=== PATIENT | female | born 2005 | race African-American/Black ===

== ENCOUNTER 2024-05-15 17:25 | Emergency (ER) | payer OTHER, SELFPAY ==
[2024-05-15 17:33] VITALS: BP 149/79; PULSE 132; RESP 22; TEMP 37; O2SAT 99; BMI 30.9
--- NOTE | 2024-05-15 17:36 | ED_ITS ---
HPI - General Adult General Chief complaint: Anxiety Stated complaint: anxiety since 2am Time Seen by Provider: 05/15/24 17:53 Source: patient Mode of arrival: ambulatory Limitations: no limitations History of Present Illness ED Provider: Dr. Jakub Mc HPI narrative: 18-year-old female with a history of anxiety and panic attack who presents emergency department for severe anxiety. The patient states that she stayed out late last night and got home around 200 hours. She states she did drink 1 shot shot of Tequila and did smoke marijuana. She states that since 02:00 hours this morning she has been feeling very anxious having a panic attack. She states she feels anxious, she is having chest tightness nausea, sweats, shortness of breath and vomiting. She did not take any medications prior to coming to the emergency department. Related Data Previous Rx's ?Medication ?Instructions ?Recorded diphenhydramine HCl 25 mg capsule 50 mg (2 x 25 mg) PO Q6H PRN 05/15/24 headache, nausea, vomiting #20 caps metoclopramide HCl 10 mg tablet 10 mg PO Q6H PRN nausea and 05/15/24 (Reglan) vomiting #14 tabs Allergies Allergy/AdvReac Type Severity Reaction Status Date / Time No Known Allergies Allergy Verified 05/15/24 17:36 Review of Systems 2 Review of Systems: Yes all other systems are reviewed and are negative [facility] Past Medical History [facility] Narrative: Social history: She denies tobacco use. She did drink Tequila and smoke marijuana this morning when she would state out late with her friends. Social History Social History Advance Directives: No Advance Directives Information Provided: Yes Physical Exam ED Vital Signs: Vital Signs - 24 hr 05/15/24 17:33 05/15/24 18:00 05/15/24 18:46 Temperature 98.6 F Pulse Rate 132 H 117 H 84 Respiratory Rate 22 H 24 H Blood Pressure 149/79 H 125/66 112/75 Pulse Oximetry 99 99 Oxygen Delivery Method Room Air Room Air 05/15/24 19:44 Temperature 98.8 F Pulse Rate 97 Respiratory Rate 20 Blood Pressure 93/60 Pulse Oximetry 95 Oxygen Delivery Method Room Air BMI result Body Mass Index 30.9 Vital signs revealed elevated heart rate, elevated respiratory rate and elevated blood pressure-these are consistent with her acute anxiety attack Exam: General: Awake, alert patient appears to be very anxious, she is leaning forward and vomiting, diaphoretic Head: Normocephalic, atraumatic EENT: PERRL, Lids normal, sclera normal, conjunctiva normal, nose normal , ears normal, throat without erythema or exudates Neck: Supple, no adenopathy Lung: Tachypnea breath sounds are symmetric bilaterally, no wheezing, rales or rhonchi Chest: symmetric movement, nontender Heart: Tachycardia with a regular rhythm, normal S1-S2, no murmurs rubs or go Abdomen: soft, non-tender, nondistended, normal bowel sounds Back: no vertebral tenderness, no CVAT Extremities: no deformities, moves all extremities symmetrically Neuro: Awake, alert, oriented, normal speech, cranial nerves intact, moves all extremities symmetrically Psych: Patient appears to be very anxious Course Course Course Narrative: This is an RME done by RAKESH Samuels: Additional HPI, ROS, PE not included below will be deferred to primary provider. This is a 18-year-old female presenting with anxiety, chest pain, nausea, vomiting, palpitations ongoing since 0200 endorses significant anxiety and overall feeling unwell. Reports she smoked [place] Medications Administered Discontinued Medications Generic Name Dose Route Start Last Admin Trade Name Freq PRN Reason Stop Dose Admin Diphenhydramine HCl 50 mg 05/15/24 18:39 05/15/24 18:45 Diphenhydramine Hcl 25 Mg Capsule PO 05/15/24 18:40 50 mg ONCE ONE Administration Lorazepam 2 mg 05/15/24 18:05 05/15/24 18:08 Lorazepam 2 Mg/Ml Vial IM 05/15/24 18:06 2 mg STAT STA Administration Metoclopramide HCl 10 mg 05/15/24 18:39 05/15/24 18:45 Metoclopramide Hcl 10 Mg Tablet PO 05/15/24 18:40 10 mg ONCE STA Administration Medical Decision Making Medical Decision Making MDM Narrative: 18-year-old female with a history of anxiety who presents emergency department for evaluation of anxiety attack. The patient did stay up late this morning and did drink Tequila and smoke marijuana.. Patient states she has been having anxiety attacks and 02:00 hours. Patient's vital signs did reveal tachypnea, tachycardia, elevated blood pressure. She appears to be very anxious, she was actively vomiting, she was diaphoretic exam is otherwise unremarkable. Differential diagnosis: ?Includes but is not limited to anxiety attack, adverse reaction to alcohol, adverse reaction to THC, electrolyte abnormalities, anemia Following evaluation was ordered: CBC, CMP, drug screen urine, ethanol level, magnesium, troponin, urinalysis, urine test Patient was initially treated with the following: Lorazepam 2 mg IM, Benadryl 50 mg orally, Reglan 10 mg orally Course: 18:53 My independent interpretation patient's laboratory evaluation is as follows: Urinalysis was positive for protein otherwise negative. Microscopic revealed 0- 2 RBCs, 0-5 WBCs, 11-20 squamous cells bacteria. Urine tox screen was positive for marijuana Lab Data 05/15/24 19:21 05/15/24 19:21 Labs: Lab Results 05/15/24 05/15/24 Range/Units 17:43 19:21 WBC 14.4 H (4.8-10.8) X10*3/uL RBC 5.08 (4.20-5.50) X10*6/uL Hgb 14.9 (12.0-16.0) g/dl Hct 42.2 (37.0-47.0) % MCV 83.1 (80.0-98.0) fL MCH 29.3 (27.0-33.0) pg MCHC 35.3 H (31.0-35.0) g/dl RDW 13.4 (11.0-16.0) % Plt Count 457 H (160-400) X10*3/uL MPV 10.3 (9.4-12.3) fL Immature Gran % (Auto) 0.3 (0.0-0.4) % Neut % (Auto) 82.5 H (45-73) % Lymph % (Auto) 10.4 L (20-40) % [place] % (Auto) 6.6 (2-11) % Eos % (Auto) 0.1 (0-4) % Baso % (Auto) 0.1 (0-2) % Lymph # (Auto) 1.5 (1.2-4.9) X10*3/uL [place] # (Auto) 1.0 (0.1-1.2) X10*3/uL Eos # (Auto) 0.0 (0.0-0.4) X10*3/uL Baso # (Auto) 0.0 (0.0-0.2) X10*3/uL Abs Immat Gran (auto) 0.05 H (0.00-0.03) X10*3/uL Absolute Neuts (auto) 11.9 H (2.0-8.3) x10*3/uL Absolute Nucleated RBC 0.000 (0.0-0.012) X10*3/uL Nucleated RBC % (auto) 0.0 (0.0-0.2) /100WBC Sodium 140 (135-145) mmol/L Potassium 3.8 (3.3-5.1) mmol/L Chloride 105 (96-108) mmol/L Carbon Dioxide 23 (22-29) mmol/L Anion Gap 16 (12-20) BUN 9 (9-16) mg/dL Creatinine 0.69 (0.5-1.4) mg/dL Estim Creat Clear Calc 110.1 Estimated GFR > 60 Random Glucose 106 (60-115) mg/dL Calcium 9.7 (8.4-10.2) mg/dL Magnesium 2.0 (1.6-2.6) mg/dL Total Bilirubin 0.6 (0.0-1.0) mg/dL AST 17 (5-31) U/L ALT 12 (0-31) U/L Alkaline Phosphatase 67 (39-117) U/L Troponin I High Sens < 2.7 (<3.5-17.0) ng/L Total Protein 8.9 H (6.5-8.0) g/dL Albumin 4.4 (3.5-5.0) g/dL Urine Color Yellow Urine Appearance Cloudy Urine pH 6.0 (5.0-9.0) Ur Specific [place] 1.025 (1.005-1.025) Urine Protein 100 (2+) H (Neg-Trace) mg/dL Urine Glucose (UA) Negative (Negative) mg/dL Urine Ketones 15 (Negative) mg/dL Urine Blood Negative (Negative) Urine Nitrite Negative (Negative) Ur Leukocyte Esterase Negative (Negative) Urine RBC 0-2 (0-2) /HPF Urine WBC 0-5 (0-5) /HPF Ur Squamous Epith Cells 11-20 (0-2) /HPF Urine Bacteria None Seen (None Seen) Hyaline Casts 0-2 (0-2) /LPF Urine Test NEGATIVE (NEGATIVE) Urine Opiates Screen Not Detected (Not Detect) Ur Buprenorphine Scrn Not Detected (Not Detect) ng/mL Ur Oxycodone Screen Not Detected (Not Detect) ng/mL Urine Methadone Screen Not Detected (Not Detect) ng/mL Urine Fentanyl Screen Not Detected (Not Detect) Ur Barbiturates Screen Not Detected (Not Detect) Ur Phencyclidine Scrn Not Detected (Not Detect) Ur Amphetamines Screen Not Detected (Not Detect) U Benzodiazepines Scrn Not Detected (Not Detect) Urine Cocaine Screen Not Detected (Not Detect) U Marijuana (THC) Screen POSITIVE H (Not Detect) Ethyl Alcohol < 10 mg/dL Independent Interpretation I performed an independent interpretation of an: EKG Interpretation: My independent interpretation patient's 12 EKG done at 17:45 hours is as follows: Sinus tachycardia with a rate of 144, normal WA interval, QRS duration. Prolonged QTC interval 532 milliseconds, no ST segment elevation, less than [address] segment depression leads 2, 3, AVF, V3 through V4 Discharge Plan Discharge Clinical Impression: Panic attack, Nausea & vomiting, Proteinuria Patient Disposition: Home, Self-Care Instructions: Panic Attack (ED) Additional Instructions: Your blood work was unremarkable. Your kidney numbers were normal. Your urine did reveal protein in the urine. This can sometimes be a sign of early kidney disease but it can also be normal. I want you to follow-up with your doctor to get a repeat urinalysis and if you still have protein in your urine when you are feeling well. If you have protein in urine then you may need further workup to determine if you have a problem with your kidneys. Your urine drug screen was positive for THC/marijuana. Sometimes marijuana can trigger a panic attack. You should avoid smoking marijuana or eating marijuana edibles in the future. Reglan (metoclopramide) 10 mg pills, take 1 pill every 6 hours as needed for nausea or vomiting. When you take Reglan I also want you to take Benadryl (he is diphenhydramine) 25 mg pills 2 pills. Benadryl helps the Reglan work better. This medication will make you sleepy so you can not drive and work while if you take Reglan/Benadryl. Your urine test was negative Follow-up with your doctor in 2 days. Please return to the emergency department if your symptoms get worse or if you develop any symptoms that are concerning to you. Prescriptions: New diphenhydramine HCl 25 mg capsule 50 mg PO Q6H PRN (Reason: headache, nausea, vomiting) Qty: 20 0RF metoclopramide HCl [Reglan] 10 mg tablet 10 mg PO Q6H PRN (Reason: nausea and vomiting) Qty: 14 0RF Print Language: Honduran
--- NOTE | 2024-05-15 17:38 | ECG_ITS ---
Test Reason : PALPATATIONS Blood Pressure : / mmHG Vent. Rate : 144 BPM Atrial Rate : 144 BPM P-R Int : 112 ms QRS Dur : 072 ms QT Int : 344 ms P-R-T Axes : 000 044 021 degrees QTc Int : [address] & T wave abnormality, consider inferior ischemia Abnormal ECG No previous ECGs available Referred By: Walter Samuels Electronically Signed By:Juancarlos Cruz
--- NOTE | 2024-05-15 17:58 | PC.NURSE ---
Patient sitting in bed visibly anxious, stating she is having a anxiety attack. Parents at bedside. Patient vomited large amount of clear liquid
--- NOTE | 2024-05-15 17:59 | PC.NURSE ---
Provider notified of tacycardia
[2024-05-15 18:00] VITALS: BP 125/66; PULSE 117; RESP 24; O2SAT 99
[2024-05-15 18:02] LABS: Appearance Urine Cloudy; Color Urine Yellow; Glucose Urine UA Negative (Negative); Leukocyte Esterase Urine Negative (Negative); Nitrite Urine Negative (Negative); Specific Gravity - Urine 1.025 (1.005-1.025); UMIC TRIGGER UACC YES; Urine Blood Negative (Negative); Urine Ketones 15 mg/dL (Negative); Urine Protein 100 (2+) mg/dL (Neg-Trace)
[2024-05-15] MEDS: LORazepam 2 MG/ML VIAL IM (18:08)
[2024-05-15 18:11] LABS: Amphetamine Screen Urine Not Detected (Not Detect); Barbiturates, Urine Not Detected (Not Detect); Benzodiazepines Screen Urine Not Detected (Not Detect); Buprenorphine Scr Not Detected (Not Detect); Cannabinoid Screen Urine POSITIVE (Not Detect); Cocaine Screen Urine Not Detected (Not Detect); Fentanyl, urine Not Detected (Not Detect); Methadone Screen, Urine Not Detected (Not Detect); Opiate Screen Urine Not Detected (Not Detect); Oxycodone Screen Urine Not Detected (Not Detect); Phencyclidine Screen Urine Not Detected (Not Detect)
[2024-05-15 18:14] LABS: Bacteria Urine None Seen (None Seen); Hyaline Casts Urine 0-2 /LPF (0-2); RBC Urine 0-2 /HPF (0-2); WBC Urine 0-5 /HPF (0-5)
[2024-05-15] MEDS: Metoclopramide HCl 10 MG TABLET PO (18:45)
[2024-05-15] MEDS: diphenhydrAMINE HCL 25 MG CAPSULE 50 MG PO (18:45)
[2024-05-15 18:46] VITALS: BP 112/75; PULSE 84
[2024-05-15 19:26] LABS: MANUAL DIFF FLAG NO
[2024-05-15 19:28] LABS: Basophils Percent Auto 0.1 % (0-2); Eosinophils Percent Auto 0.1 % (0-4); Hematocrit 42.2 % (37.0-47.0); Hemoglobin 14.9 g/dl (12.0-16.0); Imm Gran Abs Auto 0.05 X10*3/uL (0.00-0.03); Imm Gran Pct Auto 0.3 % (0.0-0.4); Lymphocytes Absolute Auto 1.5 X10*3/uL (1.2-4.9); Lymphocytes Percent Auto 10.4 % (20-40); Mean Corpuscular HGB Conc 35.3 g/dl (31.0-35.0); Mean Corpuscular Hemoglobin 29.3 pg (27.0-33.0); Mean Corpuscular Volume 83.1 fL (80.0-98.0); Mean Platelet Volume 10.3 fL (9.4-12.3); Monocytes Percent Auto 6.6 % (2-11); Neutrophils Absolute Auto 11.9 x10*3/uL (2.0-8.3); Neutrophils Percent Auto 82.5 % (45-73); Platelet Count 457 X10*3/uL (160-400); Red Blood Count 5.08 X10*6/uL (4.20-5.50); Red Cell Distribution Width 13.4 % (11.0-16.0); White Blood Count 14.4 X10*3/uL (4.8-10.8)
[2024-05-15 19:44] VITALS: BP 93/60; PULSE 97; RESP 20; TEMP 37.1; O2SAT 95
[2024-05-15 19:46] LABS: Alanine Aminotransferase 12 U/L (0-31); Albumin Level 4.4 g/dL (3.5-5.0); Alkaline Phosphatase 67 U/L (39-117); Anion Gap 16 (12-20); Aspartate Amino Transferase 17 U/L (5-31); Bilirubin Total 0.6 mg/dL (0.0-1.0); Blood Urea Nitrogen 9 mg/dL (9-16); Calcium 9.7 mg/dL (8.4-10.2); Carbon Dioxide 23 mmol/L (22-29); Chloride 105 mmol/L (96-108); Creatinine Clr Calc Pharmacy 110.1; Estimated Glomerular Filt Rate > 60; Ethanol < 10 mg/dL; Glucose Random 106 mg/dL (60-115); Potassium 3.8 mmol/L (3.3-5.1); Sodium 140 mmol/L (135-145); Total Protein 8.9 g/dL (6.5-8.0)
[2024-05-15 19:50] LABS: Troponin-I High Sensitivity < 2.7 ng/L (<3.5-17.0)
[2024-05-15 21:26] LABS: UPreg QC Valid YES; Urine Pregnancy NEGATIVE (NEGATIVE)
[2024-05-15 21:38] VITALS: BP 100/66; PULSE 108; RESP 16; TEMP 37.4; O2SAT 98
[2024-05-15 22:02] VITALS: BP 100/66; PULSE 108; RESP 16; TEMP 37.4; O2SAT 98
== END 2024-05-15 22:00 | disposition home or self-care (01) ==
PROVIDERS: Physician Assistant; Emergency Provider Emergency Medicine Emergency Medical Services
DX: F41.0 Panic disorder [episodic paroxysmal anxiety] (principal); F41.1 Generalized anxiety disorder; F12.90 Cannabis use, unspecified, uncomplicated; R07.89 Other chest pain; R11.2 Nausea with vomiting, unspecified; R80.9 Proteinuria, unspecified; Z79.899 Other long term (current) drug therapy
CPT/HCPCS: 36415; 80053; 80307; 81001; 81025; 83735; 84484; 85025; 93005; 96372; 99284; 99285; J2060

== ENCOUNTER → 2024-05-15 17:38 | Outpatient (BNV) | payer OTHER, SELFPAY | PROVIDERS: Emergency Provider Emergency Medicine Emergency Medical Services; Visit Provider Internal Medicine Cardiovascular Disease | DX: R94.31 Abnormal electrocardiogram [ECG] [EKG] (principal) | CPT/HCPCS: 93010 ==

== ENCOUNTER 2025-06-28 05:24 | Emergency (ER) | payer OTHER, SELFPAY ==
[2025-06-28 05:26] VITALS: BP 119/78; PULSE 107; RESP 24; TEMP 36; O2SAT 98; BMI 26.8
[2025-06-28] MEDS: diazePAM 10 MG/2 ML CARTRIDGE 5 MG IM (06:26)
[2025-06-28 08:11] VITALS: BP 123/78; PULSE 102; RESP 16; TEMP 36.8; O2SAT 95
--- NOTE | 2025-06-28 08:19 | PC.NURSE ---
Pt cont to be restless, crying, thrashing around on bed, putting fingers down her throat to make herself vomit; MD made aware; pt medicated per orders for nausea; pt remains anxious; family at bedside
--- NOTE | 2025-06-28 08:42 | ED_ITS ---
HPI - Anxiety General Chief Complaint: Anxiety Stated Complaint: Anxiety Time Seen by Provider: 06/28/25 05:57 Source: patient and family Mode of arrival: ambulatory Limitations: no limitations History of Present Illness ED Provider: Dr. Gauri Curry HPI narrative: patient comes to the emergency room complaining of Severe anxiety, and having panic attacks. According to the patient, she is unsure of what triggers her panic attacks. Patient complaining of nausea. Patient is already taking citalopram. Also, patient is supposed to be taking BuSpar him. However, the patient's mother decided not to give her the medications. patient's mother states that the prescription of buspirone was prescribed by a physician that it is not her daughter's regular physician and does not feel safe to start a new medication without talking to them. Also, the patient's mother states that the daughter usually has a prescription for Ativan PRN anxiety. However, they ran out and the on-call physician did not feel comfortable refilling Ativan. Related Data Previous Rx's ?Medication ?Instructions ?Recorded diphenhydramine HCl 25 mg capsule 50 mg (2 x 25 mg) PO Q6H PRN 05/15/24 headache, nausea, vomiting #20 caps metoclopramide HCl 10 mg tablet 10 mg PO Q6H PRN nause a and 05/15/24 (Reglan) vomiting #14 tabs Allergies Allergy/AdvReac Type Severity Reaction Status Date / Time No Known Allergies Allergy Verified 06/28/25 05:29 Review of Systems 2 Review of Systems: Constitutional : No Weight loss, No Fever, No Chills, No Night Sweats, No Fatigue, No Malaise ENT/Mouth : No Hearing loss, No Ear Pain, No Nasal Congestion, No Sinus Pain, No Hoarseness, No sore throat, No Rhinorrhea, No Swallowing Difficulty Eyes: No Eye Pain, No Swelling, No Redness, No Foreign Body, No Discharge, No Vision Changes Cardiovascular : No Chest Pain, No SOB, No Dyspnea on Exertion, No Orthopnea, No Edema, No Palpitations Respiratory : No Cough, No Sputum, No Wheezing, No Smoke Exposure, No Dyspnea Gastrointestinal : No Nausea, No Vomiting, No Diarrhea, No Constipation, No abdominal Pain, No Hematochezia, No Melena Genitourinary : no irregular bleeding, No Dysuria, No Urinary Frequency, No Hematuria, No Urinary Incontinence, No Urgency, No Flank Pain, No Urinary Flow Changes, No Hesitancy Musculoskeletal : No joint pain, No Myalgias, No Joint Swelling Skin : No Skin Lesions, No rash Neuro : No Weakness, No Numbness, No Paresthesias, No Loss of Consciousness, No Dizziness, No Headache Psych : Complaining of a panic attack, No Depression, No SI/HI/AH/VH, No Social Issues, Heme/Lymph: No Bruising, No Bleeding,No Lymphadenopathy Endocrine : No Polyuria, No Polydipsia, No Temperature Intolerance [facility] Past Medical History Medical History (Updated 06/28/25 @ 08:51 by Gauri Curry MD) Panic attack Social History Social History Advance Directives: No Advance Directives Information Provided: No Do you have a plan to hurt others: No Plan Patient : No Physical Exam 2 Exam: Exam: Appearance: Alert. Oriented X3. having a panic attack Eyes: Pupils equal, round and reactive to light. ENT: Pharynx normal. Neck: Normal inspection. Neck supple. No lymph nodes noted. No crepitus CVS: Normal heart rate and rhythm. Pulses normal. Normal S1 and S2 Respiratory: No respiratory distress. Breath sounds normal. No Wheezing. No rales Abdomen: Soft and nontender. No rigidity. No distention. Skin: Skin warm and dry. Normal skin color. Normal skin turgor. Extremities: No lower extremity edema. No Lacerations. No Rash Neuro: Oriented X 3. No motor deficit. No sensory deficit. Moving all extremities. No slurred speech. CN 2 through 12 grossly intact Psych: very anxious, having a panic attack, making herself vomit Vital Signs: Vital Signs: Last Vital Signs Temp 98.4 F 06/28/25 16:13 Pulse 96 06/28/25 16:13 Resp 16 06/28/25 16:13 BP 97/60 06/28/25 16:13 Pulse Ox 98 06/28/25 16:13 O2 Del Method Room Air 06/28/25 16:13 BMI result Body Mass Index 26.8 Course Course Course Narrative: patient is having a panic attack, unable to give much history. Patient was given IM diazepam 5 mg and IM Benadryl. Also sublingual Zofran. Patient denies SI Medications Administered Discontinued Medications Generic Name Dose Route Start Last Admin Trade Name Freq PRN Reason Stop Dose Admin Diazepam 5 mg 06/28/25 06:20 06/28/25 06:26 Diazepam 10 Mg/2 Ml Cartridge IM 06/28/25 06:21 5 mg STAT STA Administration Diphenhydramine HCl 50 mg 06/28/25 06:20 06/28/25 06:26 Diphenhydramine Hcl 50 Mg/Ml Vial IM 06/28/25 06:21 50 mg ONCE ONE Administration Diphenhydramine HCl 50 mg 06/28/25 08:33 06/28/25 09:15 Diphenhydramine Hcl 25 Mg Capsule PO 06/28/25 08:34 50 mg ONCE ONE Administration Droperidol 0.625 mg 06/28/25 12:19 06/28/25 12:33 Droperidol 5 Mg/2 Ml Vial IVPUSH 06/28/25 12:20 0.625 mg ONCE ONE Administration Haloperidol 5 mg 06/28/25 08:33 06/28/25 09:14 Haloperidol 5 Mg Tablet PO 06/28/25 08:34 5 mg ONCE ONE Administration Sodium Chloride 1,000 mls @ 999 mls/hr 06/28/25 12:30 06/28/25 14:17 Ns IV 06/28/25 13:30 Infused .Q1H1M [facility] Infusion Sodium Chloride 1,000 mls @ 999 mls/hr 06/28/25 14:45 06/28/25 14:47 Ns IV 06/28/25 15:45 999 mls/hr .Q1H1M [facility] Administration Sodium Chloride 1,000 mls @ 999 mls/hr 06/28/25 14:45 06/28/25 14:47 Ns IV 06/28/25 15:45 999 mls/hr .Q1H1M [facility] Administration Lorazepam 2 mg 06/28/25 08:33 06/28/25 09:14 Lorazepam 1 Mg Tablet PO 06/28/25 08:34 2 mg ONCE ONE Administration Ondansetron HCl 4 mg 06/28/25 07:37 06/28/25 07:40 Ondansetron Odt 4 Mg Tab.Rapdis TRANSLINGU 06/28/25 07:38 4 mg ONCE ONE Administration Ondansetron HCl 4 mg 06/28/25 12:19 06/28/25 12:33 Ondansetron Hcl 4 Mg/2 Ml Vial IVPUSH 06/28/25 12:20 4 mg ONCE ONE Administration Medical Decision Making Medical Decision Making MDM Narrative: the patient's medication initially help but patient had rebound severe anxiety and panic attack. Patient now getting Haldol 5 mg, lorazepam 2 mg, more Benadryl 50 mg I discussed with the patient and her mother that ideally we should get a crisis team consult, maybe they will have some other suggestions regarding the patient's care. Overall, the patient's mother states that she is willing to the crisis team consult but she does not want her daughter to go inpatient. Seems that they are waiting to be seen by the PCP and waiting for referrals for Psychiatry/Psychology. However, this follow-up consult and not having any time soon per patient's mother. Therefore, they are requesting the care team help so that they can be seen sooner multiple medications has been off her to the patient to help control the anxiety. However, it is the patient's mother who is limiting which medications she wants her daughter to take. Care team consult pending sign out given to my colleague Dr. Caballero Patient being cleared by the care team. Has a history of anxiety and panic attack. Patient's labs show an anion gap consistent with some dehydration multiple L of fluid was given. Patient is sleeping now very comfortable. Will p.o. challenge again. DC if patient can tolerate p.o.. Differential Diagnosis Differential Diagnoses: The differential diagnosis associated with the presentation includes ( anxiety, panic attack) Anxiety, nausea vomiting Admission/Observation Consideration of admission/observation: Escalation of care including admission/observation considered ( patient waiting to be seen by the care team) Lab Data 06/28/25 12:29 06/28/25 12:29 Labs: Lab Results 06/28/25 Range/Units 12:29 WBC 13.9 H (4.8-10.8) X10*3/uL RBC 4.82 (4.20-5.50) X10*6/uL Hgb 14.2 (12.0-16.0) g/dl Hct 40.4 (37.0-47.0) % MCV 83.8 (80.0-98.0) fL MCH 29.5 (27.0-33.0) pg MCHC 35.1 H (31.0-35.0) g/dl RDW 13.5 (11.0-16.0) % Plt Count 433 H (160-400) X10*3/uL MPV 9.7 (9.4-12.3) fL Immature Gran % (Auto) 0.4 (0.0-0.4) % Neut % (Auto) 87.1 H (45-73) % Lymph % (Auto) 9.9 L (20-40) % [place] % (Auto) 2.4 (2-11) % Eos % (Auto) 0.0 (0-4) % Baso % (Auto) 0.2 (0-2) % Lymph # (Auto) 1.4 (1.2-4.9) X10*3/uL [place] # (Auto) 0.3 (0.1-1.2) X10*3/uL Eos # (Auto) 0.0 (0.0-0.4) X10*3/uL Baso # (Auto) 0.0 (0.0-0.2) X10*3/uL Abs Immat Gran (auto) 0.06 H (0.00-0.03) X10*3/uL Absolute Neuts (auto) 12.1 H (2.0-8.3) x10*3/uL Absolute Nucleated RBC 0.000 (0.0-0.012) X10*3/uL Nucleated RBC % (auto) 0.0 (0.0-0.2) /100WBC Sodium 142 (135-145) mmol/L Potassium 4.4 (3.3-5.1) mmol/L Chloride 107 (96-108) mmol/L Carbon Dioxide 18 L (22-29) mmol/L Anion Gap 21 H (12-20) BUN 6 L (9-16) mg/dL Creatinine 0.67 (0.5-1.4) mg/dL Estim Creat Clear Calc 104.0 Estimated GFR > 60 Random Glucose 103 (60-115) mg/dL Calcium 9.7 (8.4-10.2) mg/dL Total Bilirubin 0.4 (0.0-1.0) mg/dL Direct Bilirubin 0.1 (0.0-0.5) mg/dL AST 34 H (5-31) U/L ALT 13 (0-31) U/L Alkaline Phosphatase 60 (39-117) U/L Total Protein 8.7 H (6.5-8.0) g/dL Albumin 4.7 (3.5-5.0) g/dL Beta HCG, Quant < 2 mIU/mL Critical Care Time Critical Care Time Critical Care Time: Yes Total Critical Care Time: 60 Attestation: I have personally provided critical care time. Time includes review of lab data, radiology results, discussion with consultants, and monitoring for potential decompensation. Intervention performed as documented. Discharge Plan Discharge Clinical Impression: Panic disorder, Acute anxiety Patient Disposition: Home, Self-Care Instructions: Anxiety (ED) Prescriptions: No Action diphenhydramine HCl 25 mg capsule 50 mg PO Q6H PRN (Reason: headache, nausea, vomiting) Qty: 20 0RF metoclopramide HCl [Reglan] 10 mg tablet 10 mg PO Q6H PRN (Reason: nausea and vomiting) Qty: 14 0RF Referrals: Sherie Kaur DO [Primary Care Provider, Internal Medicine] - 07/02/25 Print Language: Burmese
--- NOTE | 2025-06-28 10:47 | PC.NURSE ---
Pt resting quietly at this time; parents at bedside; awaiting Care Team eval
--- NOTE | 2025-06-28 11:46 | MHC.CARE ---
CARE steam shovel operating engineer assessed Darshan, who was visibly restless, lying in bed next to her mom. Darshan acknowledged tightening of her chest and issues breathing. She and her mom endorsed increased anxiety and panic after Darshan returned home from an evening out. Darshan admittedly drank one drink and suspects this may have elevated her anxiety. She also denied taking medication consistently due to insurance issues and an inability to connect with her PCP. we can't get an appointment until August to discuss medication . Furthermore, Darshan and her mom disclosed how difficult it has been to obtain mental health services given long wait lists. Darshan's mom acknowledged how difficult it has been for her daughter, specifically when it comes to keeping a job, since she began suffering from anxiety. 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 Darshan's mom shared that while their home environment is a safe place , and she will always help her daughter financially, she worries that her daughter's anxiety will worsen if she does not have consistent providers, including a PCP, therapist and psychiatrist. Darshan advocated for local resources and medication from a skilled provider. Darshan's mom, Giselle, acknowledged various mindfulness skills her daughter engages in when she is anxious, that usually work. At this time, painting, soothing sounds/exercises, walking, art therapy and taking a hot shower are not effective. her anxiety was only this bad 1.5 years ago when she came here and she resolved with ativan . Both Darshan and her mom denied any history of suicidal ideations, attempts and/or reckless behaviors. never, never . Both declined inpatient level of care for immediate medication evaluation, coping skills and outpatient services. Darshan's mom exhibited gratitude as caption writer provided a booklet of local agencies and took time explaining the process of admission for certain services that are closer to home. Air Traffic Control Operator explained the differences of each level of care, including PHP, respite, IPL[facility] and outpatient, of which Darshan and her mom were familiar with. Again, both requested outpatient resources given there were no safety concerns. Due to Darshan's presentation and fears, caption writer messaged fabrication technician psych for a consult.
[2025-06-28 11:49] VITALS: BP 114/67; PULSE 76; RESP 16; TEMP 36.6; O2SAT 98
[2025-06-28 12:35] LABS: MANUAL DIFF FLAG NO
[2025-06-28 12:40] LABS: Hematocrit 40.4 % (37.0-47.0); Hemoglobin 14.2 g/dl (12.0-16.0); Imm Gran Abs Auto 0.06 X10*3/uL (0.00-0.03); Imm Gran Pct Auto 0.4 % (0.0-0.4); Lymphocytes Absolute Auto 1.4 X10*3/uL (1.2-4.9); Mean Corpuscular HGB Conc 35.1 g/dl (31.0-35.0); Mean Corpuscular Hemoglobin 29.5 pg (27.0-33.0); Mean Corpuscular Volume 83.8 fL (80.0-98.0); NRBC Abs Auto 0.000 X10*3/uL (0.0-0.012); NRBC Pct Auto 0.0 /100WBC (0.0-0.2); Platelet Count 433 X10*3/uL (160-400); Red Blood Count 4.82 X10*6/uL (4.20-5.50); White Blood Count 13.9 X10*3/uL (4.8-10.8)
[2025-06-28 12:57] LABS: Alanine Aminotransferase 13 U/L (0-31); Albumin Level 4.7 g/dL (3.5-5.0); Alkaline Phosphatase 60 U/L (39-117); Anion Gap 21 (12-20); Aspartate Amino Transferase 34 U/L (5-31); Blood Urea Nitrogen 6 mg/dL (9-16); Calcium 9.7 mg/dL (8.4-10.2); Carbon Dioxide 18 mmol/L (22-29); Chloride 107 mmol/L (96-108); Creatinine Clr Calc Pharmacy 104.0; Estimated Glomerular Filt Rate > 60; Potassium 4.4 mmol/L (3.3-5.1); Sodium 142 mmol/L (135-145); Total Protein 8.7 g/dL (6.5-8.0)
[2025-06-28 14:17] VITALS: BP 91/55; PULSE 101; RESP 16; TEMP 36.8; O2SAT 98
--- NOTE | 2025-06-28 14:53 | PC.NURSE ---
Pt sleeping in room; IVF's infusing per orders; parent at bedside
--- NOTE | 2025-06-28 16:12 | MHC.EDTECH ---
Pt walked to and from bathroom with steady gait, stated she felt fine there and back. BP taken upon return to room and ice chips given, ok per RN
[2025-06-28 16:13] VITALS: BP 97/60; PULSE 96; RESP 16; TEMP 36.9; O2SAT 98
--- NOTE | 2025-06-28 16:13 | PC.NURSE ---
Pt ambulatory to BR with steady gait; pt's pallor improved; pt reports feeling much better at this time with no reports of pain; pt trialing PO ice chips at this time; aware
[2025-06-28 16:39] VITALS: BP 97/60; PULSE 96; RESP 16; TEMP 36.9; O2SAT 98
== END 2025-06-28 16:44 | disposition home or self-care (01) ==
PROVIDERS: Emergency Medicine Emergency Medical Services; Emergency Provider Emergency Medicine; PCP Pediatrics
DX: F41.0 Panic disorder [episodic paroxysmal anxiety] (principal); F41.9 Anxiety disorder, unspecified; F41.1 Generalized anxiety disorder; F43.0 Acute stress reaction; E86.0 Dehydration; R11.0 Nausea; Z79.899 Other long term (current) drug therapy
CPT/HCPCS: 36415; 80048; 80076; 84702; 85025; 96361; 96372; 96374; 96375; 99284; 99285; 99291; J1200; J1790; J2405; J3360